=== PATIENT | male | born 1950 | race Caucasian/White ===

== ENCOUNTER 2017-03-23 07:20 | Emergency (ER) | payer BC ==
[2017-03-23 07:48] VITALS: BP 110/76
--- NOTE | 2017-03-23 08:40 | UC ---
Back Pain HPI - HPI Summary HPI Summary: Mr. Garcia is a pleasant 66 yo gentleman c/o R lower back pain x approx 3 days. Was working on his car, and twisted, felt pain in R low back. No b/b d/ o. No p/d/w. No fever / chills. - History of Current Complaint Chief Complaint: UCBackPain Stated Complaint: BACK PAIN Time Seen by Provider: 03/23/17 07:45 Hx Obtained From: Patient - Allergies/Home Medications Allergies/Adverse Reactions: Allergies Allergy/AdvReac Type Severity Reaction Status Date / Time No Known Allergies Allergy Verified 03/23/17 07:35 PMH/Surg Hx/FS Hx/Imm Hx Previously Healthy: No - copd, weight loss, mitral valve replacement - Surgical History Surgical History: Yes Surgery Procedure, Year, and Place: CABG x 2 vessels and mitral valve repair 1959, 2002, AND 2008 [facility] AND [place], [place]. MITRAL VALVE REPLACEMENT ( PLASTIC PER PT) 2016. 1996 & 2007 RT LOWER LEG FRACTURE ORIF. PACER - Family History Known Family History: Positive: Unknown - Social History Alcohol Use: None Alcohol Amount: NONE IN 20 YRS Substance Use Type: Marijuana Substance Use Comment - Amount & Last Used: a couple times a day Smoking Status (MU): Former Smoker Amount Used/How Often: 1PPD 20 YRS Have You Smoked in the Last Year: No When Did the Patient Quit Smoking/Using Tobacco: 1997 - Immunization History Most Recent Influenza Vaccination: 2013 Most Recent Tetanus Shot: within 10 yrs Most Recent Pneumonia Vaccination: 2012 or 2011 Review of Systems Constitutional: Negative, Other - recent ct chest 2/2 hx weight loss Skin: Negative Eyes: Negative ENT: Negative Respiratory: Negative - none new Cardiovascular: Negative - no change Gastrointestinal: Negative Genitourinary: Negative Motor: Negative Neurovascular: Negative Musculoskeletal: Other: - see hpi Neurological: Negative Psychological: Negative Is Patient Immunocompromised?: No All Other Systems Reviewed And Are Negative: Yes Physical Exam Triage Information Reviewed: Yes Appearance: Thin Vital Signs: Initial Vital Signs Temp 98.6 F 03/23/17 07:39 Pulse 69 03/23/17 07:39 Resp 20 03/23/17 07:39 BP 110/76 03/23/17 07:39 Pulse Ox 100 03/23/17 07:39 Vital Signs Reviewed: Yes Eye Exam: Normal - grossly normal ENT Exam: Normal - grossly normal Neck: Positive: Nontender Respiratory: Positive: Chest non-tender, Lungs clear, Normal breath sounds, No respiratory distress, No accessory muscle use Cardiovascular Exam: Normal Cardiovascular: Positive: RRR, Other: - + mv click Abdominal Exam: Other - thin Abdomen Description: Positive: Nontender, No Organomegaly Bowel Sounds: Positive: Present Musculoskeletal Exam: Other - back is tender R lat low back, diffuse, exending to R ischium. Buttocks nontender. DTR's P 2+ equal. Distal sens LT present. Neurological Exam: Normal - grossly normal, nonfocal Psychological Exam: Normal - conversing easily and appropriately Skin Exam: Normal - nondiaphoretic. a little pale. Back Pain Course/Dx - Course Course Of Treatment: Reviewed CT report from 03/17/17. Has upcoming appt with PCP in 2 days (Dr. Pratt) to review. Has upcomign appt with cash person in 3 days. Today s/sx c/w acute R low back strain. However, in light of CT report ( see meditech) incl ascending thor aneurysm, pulm nodules, recent weight loss, there is concern for possible confounding issue. Recommend further eval / tx in ED. D/w Mr. Garcia, he is amenable, wishes to drive himself. As such, analgesia in the ED (not prior to driving). D/w Dr. Larose, ED. - Differential Dx/Diagnosis Provider Diagnoses: Acute low back pain Discharge - Discharge Plan Condition: Stable Disposition: HOME Referrals: Mily Pratt MD [Primary Care Provider] - Additional Instructions: Go directly to the Emergency Department. Call [phone] en route if any problems.
== END 2017-03-23 08:40 | disposition home or self-care (01) ==
LOC: UCEAST 07:20
DX: M54.5 Low back pain (principal); Z87.891 Personal history of nicotine dependence; F12.90 Cannabis use, unspecified, uncomplicated; Z95.1 Presence of aortocoronary bypass graft; Z95.2 Presence of prosthetic heart valve
CPT/HCPCS: 99211; G0463

== ENCOUNTER 2017-03-23 09:02 | Emergency (ER) | payer BC ==
[2017-03-23] MEDS ORDERED: LORazepam TAB(*) 1 MG PO ONE (09:37)
[2017-03-23] MEDS ORDERED: Ibuprofen TAB* 600 MG PO ONE (09:37)
[2017-03-23] MEDS ORDERED: LORazepam INJ* 2 MG/ML 1 ML VIAL IV ONE (09:43)
[2017-03-23] MEDS ORDERED: Ketorolac INJ* 30 MG/ML 1 ML VIAL IV ONE (09:43)
[2017-03-23 10:06] LABS: Hematocrit 39 % (42-52); Hemoglobin 13.3 g/dl (14.0-18.0); Mean Corpuscular HGB Conc 34 g/dl (31-36); Mean Corpuscular Hemoglobin 31 pg (27-31); Mean Corpuscular Volume 91 fL (80-94); Mean Platelet Volume 8 um3 (7.4-10.4); Red Blood Count 4.25 10^6/ul (4.0-5.4); Red Cell Distribution Width 15 % (10.5-15); White Blood Count 6.8 10^3/ul (3.5-10.8)
[2017-03-23 10:10] LABS: Urine Bacteria Absent (Absent); Urine Bilirubin Negative (Negative); Urine Glucose Negative (Negative); Urine Nitrite Negative (Negative)
[2017-03-23 10:30] LABS: Troponin I 0.01 ng/mL (<0.04)
[2017-03-23 10:32] LABS: Albumin 4.5 g/dL (3.2-5.2); BUN/Creatinine Ratio 12.9 (8-20); C Reactive Protein 2.05 mg/L (< 5.00); Calcium 9.5 mg/dL (8.6-10.3); EGFR African American 105.2 (>60); EGFR Non-African American 81.8 (>60); Globulin 2.1 g/dL (2-4); Potassium 4.2 mmol/L (3.5-5.0); Total Bilirubin 0.9 mg/dL (0.2-1.0); Total Protein 6.6 g/dL (6.4-8.9)
[2017-03-23] MEDS ORDERED: Iohexol 350* (CONTRAST) 500 ML MDV IV ONE (10:36)
--- NOTE | 2017-03-23 11:18 | RAD ---
HISTORY: Back pain COMPARISONS: CT dated March 17, 2017 TECHNIQUE: Multiple contiguous axial CT scans were obtained of the chest, abdomen, and pelvis after the administration of intravenous contrast. Coronal and sagittal multiplanar reformations are submitted for review.. Oral contrast was not administered. FINDINGS: CHEST NECK AND THYROID: The lower neck and thyroid are unremarkable. CHEST WALL: There is no lower cervical, axillary, or supraclavicular lymphadenopathy by size criteria. A left-sided pacemaker is noted. HEART AND PERICARDIUM: A prosthetic mitral valve is noted. AORTA AND PULMONARY VASCULATURE: There is dilatation of the ascending thoracic aorta measuring up to 3.8 x 3.8 cm transversely, sparing the aorta and great. There is no intimal flap. MEDIASTINUM: There is no mediastinal lymphadenopathy by size criteria. LENORA: There is no hilar lymphadenopathy by size criteria. AIRWAY AND ESOPHAGUS: The airway is unremarkable, without endobronchial filling defect. The esophagus is grossly normal. LUNG PARENCHYMA: Again noted are multiple pulmonary parenchymal nodules similar to the previous examination measuring up to 0.6 cm in size. PLEURA: No pleural abnormalities are noted. BONES AND SOFT TISSUES: The patient is status post median sternotomy. Mild degenerative changes are noted. ABDOMEN/PELVIS: LIVER: The liver is normal in shape, size, contour, and attenuation. BILE DUCTS: There is no intrahepatic or extrahepatic biliary dilatation. GALLBLADDER: The gallbladder is normal, without pericholecystic inflammatory change. PANCREAS: The pancreas is normal, without mass or ductal dilatation. SPLEEN: Normal in size and appearance. UPPER GI TRACT: Evaluation of the gastrointestinal tract is limited by incomplete gastric distention. The upper GI tract is unremarkable. SMALL BOWEL & MESENTERY: The small bowel is normal in contour, course, and caliber. There is no obstruction or dilatation. COLON: There are multiple diverticula of the distal colon. There is no pericolonic inflammatory change. ADRENALS: Normal bilaterally. KIDNEYS: The kidneys are normal in shape, size, contour, and axis. There is no hydronephrosis or nephrolithiasis. BLADDER: The bladder is smooth in contour. PELVIC ORGANS: The prostate gland is normal. The seminal vesicles are symmetric. AORTA: There is calcific atherosclerotic disease of the abdominal aorta and its branches, without aneurysmal dilatation IVC: Unremarkable LYMPH NODES: There is no lymphadenopathy by size criteria. ABDOMINAL WALL: There is no evidence for abdominal wall hernia. BONES AND SOFT TISSUES: There is mild scoliotic curvature of the spine. Mild degenerative changes are noted. OTHER: None IMPRESSION: 1. 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 THERE IS NO INTIMAL FLAP TO SUGGEST DISSECTION. 2. ATHEROSCLEROSIS. 3. AGAIN NOTED ARE MULTIPLE PULMONARY PARENCHYMAL NODULES MEASURING UP TO 0.6 CM IN SIZE. THE RECOMMENDATIONS FOR FOLLOWUP AND MANAGEMENT OF INCIDENTALLY DETECTED MULTIPLE PULMONARY NODULES GREATER THAN OR EQUAL TO 6 MM BUT LESS THAN OR EQUAL TO 8 MM IN SIZE, IN A PATIENT WITHOUT A HISTORY OF MALIGNANCY, INCLUDE FOLLOWUP CT IN 3-6 MONTHS, THEN CONSIDER AGAIN AT 18-24 MONTHS FOR A LOW-RISK PATIENT OR FOLLOWUP CT IN 3-6 MONTHS, THEN AGAIN AT 18-24 MONTHS FOR A HIGH RISK PATIENT. 4. DIVERTICULOSIS NOTES: SIZE = AVERAGE LENGTH AND WIDTH; HIGH RISK IS DEFINED A HISTORY OF SMOKING OR OTHER KNOW RISK FACTORS FOR LUNG CANCER; LOW RISK IS DEFINED MINIMAL OR ABSENT HISTORY OF SMOKING OR OTHER KNOWN RISK FACTORS. Zachary, H, ELSY Shaikh, JACQUELYN Loaiza, et al (2017) "Guidelines for Management of Incidental Pulmonary Nodules Detected on CT Images: From the Fleischner Society 2017." Radiology; 284(1): 228-243. doi:10.1148/[id number]
[2017-03-23 12:00] VITALS: BP 104/69
--- NOTE | 2017-03-23 13:13 | ED ---
Saima Dyer Gabriel, scribed for Jose J Larose MD on 03/23/17 at 0926 . Back Pain - HPI Summary HPI Summary: This patient is a 66 year old M presenting to [facility] with a chief complaint of lower back pain since yesterday. Pt claims he was painting yesterday and believes he overstretched it while reaching. The patient rates the pain 10/10 in severity. Symptoms aggravated by movement. Patient denies tenderness to palpation in his back and ABD pain. Patient currently has an AAA. - History of Current Complaint Chief Complaint: EDBackInjuryPain Stated Complaint: BACK PAIN Time Seen by Provider: 03/23/17 09:16 Hx Obtained From: Patient Onset/Duration: Still Present Onset/Duration: Started Days Ago - Began yesterday Severity Currently: Severe Pain Intensity: 10 Pain Scale Used: 0-10 Numeric Aggravating Symptom(s): Movement Associated Signs And Symptoms: Positive: Negative - stomach pain, tenderness to palpation, and ABD pain - Allergies/Home Medications Allergies/Adverse Reactions: Allergies Allergy/AdvReac Type Severity Reaction Status Date / Time No Known Allergies Allergy Verified 03/23/17 07:35 PMH/Surg Hx/FS Hx/Imm Hx Previously Healthy: No Cardiovascular History: Reports: 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 MITRAL VALVE REPLACEMENT ( PLASTIC PER PT) 2016. 1996 & 2007 RT LOWER LEG FRACTURE ORIF. PACER Hx Anesthesia Reactions: No Infectious Disease History: No Infectious Disease History: Denies: Traveled Outside the US in Last 30 Days - Family History Known Family History: Negative: Hypertension, Diabetes - Social History Alcohol Use: None Alcohol Amount: NONE IN 20 YRS Substance Use Type: Reports: None Substance Use Comment - Amount & Last Used: WILL REFRAIN WEEK OF SURGERY Smoking Status (MU): Former Smoker Amount Used/How Often: 1PPD 20 YRS Have You Smoked in the Last Year: No Review of Systems Negative: Fever Negative: Abdominal Pain Positive: Other - Lower back pain All Other Systems Reviewed And Are Negative: Yes Physical Exam - Summary Physical Exam Summary: Appearance: Well-appearing Eyes: Normal, Conjunctiva clear ENT: Normal ENT inspection Dental: Normal Neck: Supple, non-tender, no lymphadenopathy Lungs: Lungs clear, normal breath sounds, no respiratory distress, no accessory muscle use Heart: RRR, no murmur, pulses normal. Abdomen: Nontender, soft. No masses, no rebound, no guarding, positive bowel sounds. Musculoskeletal: Patient has a positive straight leg raise at 40 degrees on his right side. Neurological: Normal Psychiatric: Normal Skin: Normal Triage Information Reviewed: Yes Vital Signs On Initial Exam: Initial Vitals Temp Pulse Resp BP Pulse Ox 98.6 F 72 18 124/81 99 03/23/17 09:04 03/23/17 09:04 03/23/17 09:04 03/23/17 09:04 03/23/17 09:04 Vital Signs Reviewed: Yes - Mary Anne Coma Scale Coma Scale Total: 15 Diagnostics - Vital Signs Vital Signs Temp Pulse Resp BP Pulse Ox 03/23/17 09:04 98.6 F 72 18 124/81 99 - Laboratory Lab Results: Lab Results 03/23/17 03/23/17 03/23/17 Range/Units 09:50 09:50 09:50 WBC 6.8 (3.5-10.8) 10^3/ul RBC 4.25 (4.0-5.4) 10^6/ul Hgb 13.3 L (14.0-18.0) g/dl Hct 39 L (42-52) % MCV 91 (80-94) fL MCH 31 (27-31) pg MCHC 34 (31-36) g/dl RDW 15 (10.5-15) % Plt Count 220 (150-450) 10^3/ul MPV 8 (7.4-10.4) um3 Neut % (Auto) 77.7 (38-83) % Lymph % (Auto) 12.2 L (25-47) % [place] % (Auto) 9.2 H (1-9) % Eos % (Auto) 0.5 (0-6) % Baso % (Auto) 0.4 (0-2) % Absolute Neuts (auto) 5.3 (1.5-7.7) 10^3/ul Absolute Lymphs (auto) 0.8 L (1.0-4.8) 10^3/ul Absolute Monos (auto) 0.6 (0-0.8) 10^3/ul Absolute Eos (auto) 0 (0-0.6) 10^3/ul Absolute Basos (auto) 0 (0-0.2) 10^3/ul Absolute Nucleated RBC 0 10^3/ul Nucleated RBC % 0.1 INR (Anticoag Therapy) (0.89-1.11) Sodium 134 (133-145) mmol/L Potassium 4.2 (3.5-5.0) mmol/L Chloride 100 L (101-111) mmol/L Carbon Dioxide 28 (22-32) mmol/L Anion Gap 6 (2-11) mmol/L BUN 12 (6-24) mg/dL Creatinine 0.93 (0.67-1.17) mg/dL Est GFR ( Amer) 105.2 (>60) Est GFR (Non-Af Amer) 81.8 (>60) BUN/Creatinine Ratio 12.9 (8-20) Glucose 96 (70-100) mg/dL Calcium 9.5 (8.6-10.3) mg/dL Total Bilirubin 0.90 (0.2-1.0) mg/dL AST 22 (13-39) U/L ALT 33 (7-52) U/L Alkaline Phosphatase 36 (34-104) U/L Troponin I 0.01 (<0.04) ng/mL C-Reactive Protein 2.05 (< 5.00) mg/L Total Protein 6.6 (6.4-8.9) g/dL Albumin 4.5 (3.2-5.2) g/dL Globulin 2.1 (2-4) g/dL Albumin/Globulin Ratio 2.1 (1-3) Urine Color Yellow Urine Appearance Clear Urine pH 7.0 (5-9) Ur Specific [place] 1.010 (1.010-1.030) Urine Protein Negative (Negative) Urine Ketones Negative (Negative) Urine Blood 2+ H (Negative) Urine Nitrate Negative (Negative) Urine Bilirubin Negative (Negative) Urine Urobilinogen Negative (Negative) Ur Leukocyte Esterase Negative (Negative) Urine WBC (Auto) Trace(0-5/hpf) (Absent) Urine RBC (Auto) 2+(6-10/hpf) H (Absent) Urine Bacteria Absent (Absent) Urine Glucose Negative (Negative) 03/23/17 Range/Units 09:50 WBC (3.5-10.8) 10^3/ul RBC (4.0-5.4) 10^6/ul Hgb (14.0-18.0) g/dl Hct (42-52) % MCV (80-94) fL MCH (27-31) pg MCHC (31-36) g/dl RDW (10.5-15) % Plt Count (150-450) 10^3/ul MPV (7.4-10.4) um3 Neut % (Auto) (38-83) % Lymph % (Auto) (25-47) % [place] % (Auto) (1-9) % Eos % (Auto) (0-6) % Baso % (Auto) (0-2) % Absolute Neuts (auto) (1.5-7.7) 10^3/ul Absolute Lymphs (auto) (1.0-4.8) 10^3/ul Absolute Monos (auto) (0-0.8) 10^3/ul Absolute Eos (auto) (0-0.6) 10^3/ul Absolute Basos (auto) (0-0.2) 10^3/ul Absolute Nucleated RBC 10^3/ul Nucleated RBC % INR (Anticoag Therapy) 1.96 H (0.89-1.11) Sodium (133-145) mmol/L Potassium (3.5-5.0) mmol/L Chloride (101-111) mmol/L Carbon Dioxide (22-32) mmol/L Anion Gap (2-11) mmol/L BUN (6-24) mg/dL Creatinine (0.67-1.17) mg/dL Est GFR ( Amer) (>60) Est GFR (Non-Af Amer) (>60) BUN/Creatinine Ratio (8-20) Glucose (70-100) mg/dL Calcium (8.6-10.3) mg/dL Total Bilirubin (0.2-1.0) mg/dL AST (13-39) U/L ALT (7-52) U/L Alkaline Phosphatase (34-104) U/L Troponin I (<0.04) ng/mL C-Reactive Protein (< 5.00) mg/L Total Protein (6.4-8.9) g/dL Albumin (3.2-5.2) g/dL Globulin (2-4) g/dL Albumin/Globulin Ratio (1-3) Urine Color Urine Appearance Urine pH (5-9) Ur Specific [place] (1.010-1.030) Urine Protein (Negative) Urine Ketones (Negative) Urine Blood (Negative) Urine Nitrate (Negative) Urine Bilirubin (Negative) Urine Urobilinogen (Negative) Ur Leukocyte Esterase (Negative) Urine WBC (Auto) (Absent) Urine RBC (Auto) (Absent) Urine Bacteria (Absent) Urine Glucose (Negative) Result Diagrams: 03/23/17 09:50 03/23/17 09:50 Lab Statement: Any lab studies that have been ordered have been reviewed, and results considered in the medical decision making process. Back Pain Course/Dx - Course Course Of Treatment: Mr. Garcia presented to [facility] C/O right low back pain that hurts to move. He has had no incontinence or weakness. His abd was soft and nontender. 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 CTA was negative and he improved with a muscle relaxer. I will treat him accordingly. - Diagnoses Provider Diagnoses: Low back strain Discharge - Discharge Plan Condition: Stable Disposition: HOME Prescriptions: LORazepam TAB(*) [Ativan TAB(*)] 1 mg PO Q6H PRN #20 tab MDD 4 PRN Reason: Pain traMADol TAB* [Ultram*] 25 mg PO Q6HR PRN #20 tab MDD 4 PRN Reason: Pain Patient Education Materials: Lorazepam (By mouth), Tramadol (By mouth), Acute Low Back Pain (ED) Referrals: Mily Pratt MD [Primary Care Provider] - 3 Days Additional Instructions: Follow up with PCP in 3-4 days. RETURN TO THE EMERGENCY DEPARTMENT FOR CHANGING OR WORSENING SYMPTOMS. The documentation as recorded by the Saima cristina Gabriel accurately reflects the service I personally performed and the decisions made by me, Jose J Larose MD.
== END 2017-03-23 11:57 | disposition home or self-care (01) ==
LOC: ED 09:02
DX: S39.012A Strain of muscle, fascia and tendon of lower back, initial encounter (principal); M54.5 Low back pain; Z87.891 Personal history of nicotine dependence; X50.9XXA Other and unspecified overexertion or strenuous movements or postures, initial encounter; Y93.9 Activity, unspecified; Y92.9 Unspecified place or not applicable
CPT/HCPCS: 36415; 71275; 74174; 80053; 81003; 81015; 84484; 85025; 85610; 86140; 96374; 96375; 99283; J1885; J2060; Q9967

== ENCOUNTER 2018-09-27 04:25 | Emergency (ER) | payer BC ==
--- NOTE | 2018-09-27 04:36 | ED ---
Palpitations / Dysrhythmia - HPI Summary HPI Summary: A 68 y/o M presents to ED c/o racing palpitations onset this AM upon waking, approx 90 minutes BLOCK CUBER. Denies CP, SOB, nausea, abd pain, LE pain. Denies recent trauma, illness. He sees Dr. Johns, cardio, last seen about a month ago. [employer]tronic pacemaker was placed approx 5-6 years ago. For the past month, he's been taking half the amount of Coumadin he was supposed to be taking. He was started on Lovenox four days ago. He returned from [place] in June. Multiple cardiac surgeries. - History of Current Complaint Chief Complaint: EDDysrhythmPalp Hx Obtained From: Patient Onset/Duration: Sudden Onset, Lasting Hours, Still Present Timing: Constant Character: Fast - Allergy/Home Medications Allergies/Adverse Reactions: Allergies Allergy/AdvReac Type Severity Reaction Status Date / Time No Known Allergies Allergy Verified 09/27/18 04:27 Home Medications: Home Medications Enoxaparin(*) [Lovenox(*)] 80 mg SUBCUT Q12HR 09/27/18 [History Confirmed ] Pravastatin Sodium 40 mg PO DAILY 09/27/18 [History Confirmed 09/27/18] PMH/Surg Hx/FS Hx/Imm Hx Previously Healthy: No Endocrine/Hematology History: Denies: Hx Diabetes Cardiovascular History: Reports: 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 MITRAL VALVE REPLACEMENT ( PLASTIC PER PT) 2016. 1996 & 2007 RT LOWER LEG FRACTURE ORIF. PACER Hx Anesthesia Reactions: No Infectious Disease History: No Infectious Disease History: Denies: Traveled Outside the US in Last 30 Days - Family History Known Family History: Negative: Hypertension, Diabetes - Social History Occupation: Employed Full-time Lives: Alone Alcohol Use: None Alcohol Amount: NONE IN 20 YRS Hx Substance Use: No Substance Use Type: Reports: None Substance Use Comment - Amount & Last Used: WILL REFRAIN WEEK OF SURGERY Hx Tobacco Use: Yes Smoking Status (MU): Former Smoker Amount Used/How Often: 1PPD 20 YRS Have You Smoked in the Last Year: No Review of Systems Positive: Palpitations - racing. Negative: Chest Pain Negative: Shortness Of Breath Negative: Abdominal Pain, Nausea Musculoskeletal: Other - neg: LE pain All Other Systems Reviewed And Are Negative: Yes Physical Exam - Summary Physical Exam Summary: Appearance: well appearing, no pain distress Skin: warm, dry, reflects adequate perfusion Head/face: normal Eyes: EOMI, TONE ENT: mucous membranes moist Neck: supple, non-tender Respiratory: CTA, breath sounds present Cardiovascular: pacemaker in L upper chest, tachy, pulses symmetrical Abdomen: non-tender, soft Bowel Sounds: present Musculoskeletal: normal, strength/ROM intact Neuro: normal, sensory motor intact, A&Ox3 Triage Information Reviewed: Yes Vital Signs On Initial Exam: Initial Vitals Temp Pulse Resp BP Pulse Ox 97.8 F 125 18 129/101 98 09/27/18 04:27 09/27/18 04:27 09/27/18 04:27 09/27/18 04:27 09/27/18 04:27 Vital Signs Reviewed: Yes Diagnostics - Vital Signs Vital Signs Temp Pulse Resp BP Pulse Ox 09/27/18 04:27 97.8 F 125 18 129/101 98 - Laboratory Result Diagrams: 09/27/18 04:49 09/27/18 04:47 Lab Statement: Any lab studies that have been ordered have been reviewed, and results considered in the medical decision making process. - EKG 0430 Summary of EKG Findings: Ventricular-paced at 123 bpm, Left axis, non-specific ST. Re-Evaluation - Re-Evaluation 1 Re-Evaluation Time: 05:01 Change: Improved Comment: Patient is feeling better with slower HR due to donut magnet. Interrogated pacemaker. 2 Re-Evaluation Time: 05:29 Change: Improved Comment: Patient still feeling well with donut on him. Course/Dx - Course Course Of Treatment: Nurses' notes reviewed. 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 He may be over sensing.Placed donut magnet over pacemaker and his rate dropped to 85 bpm and the patient's symptoms resolved. Pacemaker interrogation was done on the [employer] device. There was no indicated arrhythmia or malfunction reported. Spoke with Dr. Coronado who will have the [employer] customer contact representative, evaluate and reprogram the device after 7: 00. Patient was signed out to oncoming ER physician pending the pacemaker evaluation and reprogramming. - Diagnoses Differential Diagnosis/HQI/PQRI: Positive: Hypokalemia, Medication Induced, Other - Pacemaker device failure, pacemaker tachycardia Provider Diagnoses: Pacemaker-mediated tachycardia - Physician Notifications Discussed Care Of Patient With: Grant Coronado - cardio Time Discussed With Above Provider: 05:37 Instructed by Provider To: Other - Will contact [employer] and have them come reprogram it in the AM. - Critical Care Time Critical Care Time: 30-74 min - 30 mins CCT. CCT is EXCLUSIVE of separately billable procedures. Discharge - Sign-Out/Discharge Documenting (check all that apply): Sign-Out Patient Signing out patient TO: Magdiel Whiting - pending [employer] rep reprograming pacemaker Patient Received Moderate/Deep Sedation with Procedure: No - Discharge Plan Condition: Stable Referrals: Mily Pratt MD [Primary Care Provider] - - Billing Disposition and Condition Condition: STABLE - Attestation Statements Document Initiated by Scribe: Yes Documenting Scribe: Mary Killian Provider For Whom Scribe is Documenting (Include Credential): Dr. Georgi Mortensen MD Scribe Attestation: Mary Dyer scribed for Dr. Georgi Mortensen MD on 09/27/18 at 0623. Scribe Documentation Reviewed: Yes Provider Attestation: The documentation as recorded by the Mary cristina accurately reflects the service I personally performed and the decisions made by , Dr. Georgi Mortensen MD Status of Scribe Document: Viewed
[2018-09-27] MEDS ORDERED: Diltiazem IV push/loading dose 5 MG/ML 5 ML vial (25 mg) IV SLOW PU ONE (04:43)
[2018-09-27] MEDS ORDERED: NS 0.9% 1000 ML** 1,000 ML IV ONE (04:43)
[2018-09-27 04:55] LABS: ABS Eosinophils 0.1 10^3/ul (0-0.6); ABS Lymphocytes 1.4 10^3/ul (1.0-4.8); ABS Monocytes 0.6 10^3/ul (0-0.8); ABS Neutrophils 4.1 10^3/ul (1.5-7.7); Eosinophil % 1.9 %; Hematocrit 41 % (42-52); Mean Corpuscular HGB Conc 34 g/dL (31-36); Mean Corpuscular Hemoglobin 31 pg (27-31); Mean Corpuscular Volume 91 fL (80-94); Mean Platelet Volume 8.3 fL (7.4-10.4); Nucleated Red Blood Cells % 0.1; Platelet Count 153 10^3/uL (150-450); Red Blood Count 4.55 10^6 /uL (4.18-5.48); Red Cell Distribution Width 14 % (10.5-15); White Blood Count 6.2 10^3/uL (3.5-10.8)
[2018-09-27 05:02] LABS: INR 1.9 (0.82-1.09)
[2018-09-27 05:11] LABS: Albumin 4.8 g/dL (3.2-5.2); BUN/Creatinine Ratio 15.3 (8-20); Calcium 9.5 mg/dL (8.6-10.3); EGFR African American 92.6 (>60); EGFR Non-African American 76.5 (>60); Globulin 2.4 g/dL (2-4); Potassium 3.9 mmol/L (3.5-5.0); Total Bilirubin 0.5 mg/dL (0.2-1.0); Total Protein 7.2 g/dL (6.4-8.9)
[2018-09-27 05:13] LABS: Troponin I 0.02 ng/mL (<0.04)
--- NOTE | 2018-09-27 06:56 | ED ---
Progress - Progress Note Progress Note: Receiving sign out from Dr. Mortensen at shift change 09/27/[address] Whiting peding a [employer] repair of pacemaker tachycardia. Re-Evaluation - Re-Evaluation 1 Re-Evaluation Time: 08:06 Change: Improved Comment: Patient is feeling better. Pacemaker was assesed. Dr. Coronado will be contacted to discuss procedure from here. 2 Re-Evaluation Time: 08:26 Change: Improved Comment: Dr. Coronado reviewed the patient, recommended discharge and f/u with Dr. Burt. Course/Dx - Course Course Of Treatment: This patient was signed out to Dr. Mortensen. He is awaiting for Dr. Coronado from cardiology and assessed the patient as well as a [employer] bilingual inside sales representative. Dr. Coronado reports that the patient has and atrial tachycardia. Therefore he disconnected the need for the atrial rhythm and now he has a ventricular rhythm of 70 bpm. Therefore he recommends for the patient to be discharged home and follow up with and Dr. Loco and discontinue taking Multaq. I discussed all the findings and test results with the patient. Patient was instructed to return to the emergency room immediately if any of the symptoms return worsens. Plan of care was discussed with the patient and understands and agrees. All questions were answered at patient satisfaction. There were no further complaints or concerns. Lung exam before discharge: CTA B/ L. Good air exchange. No wheezing or crackles heard. CVS: S1 and S2 present. No murmurs appreciated. Patient is alert and oriented x 3. Patient is hemodynamically stable. Patient will be discharged home with follow up PCP in the next 2-3 days - Diagnoses Provider Diagnoses: Atrial tachycardia - Provider Notifications Discussed Care Of Patient With: Grant Coronado Time Discussed With Above Provider: 08:32 Instructed by Provider To: Other - Discharge and F/U with Dr. Burt. Dr. Coronado, blueprint trimmer recommended discontinuing multaq. Discharge - Sign-Out/Discharge Documenting (check all that apply): Patient Departure - discharge Patient Received Moderate/Deep Sedation with Procedure: No - Discharge Plan Condition: Stable Disposition: HOME Patient Education Materials: Atrial Tachycardia (ED) Referrals: Sekou Burt MD [Medical Doctor] - Additional Instructions: FOLLOW UP WITH DR. BURT TO DISCUSS FURTHER TREATMENT OPTIONS WITHIN 3 DAYS. RETURN TO THE EMERGENCY ROOM FOR ANY WORSENING OR NEW SYMPTOMS. - Attestation Statements Document Initiated by Scribe: Yes Documenting Scribe: Trey Parish Provider For Whom Scribe is Documenting (Include Credential): Magdiel Whiting MD Scribe Attestation: ITrey and José Parish, scribed for Magdiel Whiting MD on 09/27/18 at 0949. Status of Scribe Document: Ready
[2018-09-27 08:39] LABS: TSH (Thyroid Stimulating Horm) 3.31 mcIU/mL (0.34-5.60)
[2018-09-27 09:11] VITALS: BP 120/83
--- NOTE | 2018-09-27 10:53 | CONS ---
CC: Dr. Johns; [facility]. CARDIOLOGY CONSULTATION: DATE OF CONSULT: 09/27/18 INDICATION FOR CONSULTATION: Atrial tachycardia. HISTORY OF PRESENT ILLNESS: The patient is a 68-year-old gentleman with a history of coronary artery disease, history of coronary bypass surgery, history of pacemaker implantation for heart block, hist ory of mitral valve replacement with mechanical valve, who came to the hospital because of palpitatio ns. The patient states that for the past week or so he has been feeling palpitations and then became incessant last night. He came to the emergency room. On arrival to the emergency room, he was in a wide complex rhythm at 125 beats per minute. The patient was awake and alert and oriented. His int errogation of his device demonstrated what was thought to be either a pacemaker mediated tachycardia or an atrial tachycardia, it is unable to distinguish based on that interpretation. When I came in t o see the patient, he had a magnet placed over his pacemaker and he was atrioventricularly paced at 8 5 beats per minute. Interrogation of the device demonstrated that he had an atrial tachycardia at 13 0 beats per minute that was tracking in the ventricle at 125 beats per minute. A magnet placed over the device causes inhibition of tracking and he was ventricularly paced at 85 beats per minute. The patient denied any chest pain. He denied any increase in shortness of breath. The patient has been having issues with his anticoagulation and his INR have been low. He was on Domingo enox for a while until his INR became greater than 2.0. The patient has had no other hospitalization s. No other changes in his medications. PAST MEDICAL HISTORY: Includes coronary artery disease, mitral valve disease, microscopic hematuria, leg fracture. PAST SURGICAL HISTORY: Valve surgery and bypass in 1959, valve replacement with a mechanical valve i n 2015, pacemaker implantation. OUTPATIENT MEDICATIONS: 1. Coumadin as directed. 2. Lisinopril 5 mg a day. 3. Metoprolol tartrate 25 mg b.i.d. 4. Multaq 400 mg b.i.d. 5. Pravastatin 10 mg a day. ALLERGIES: No known drug allergies. FAMILY HISTORY: Father of lung cancer. Mother of dementia at 84. SOCIAL HISTORY: He is . He is a paul. He is a previous smoker. He quit 10 years ago. No alcohol intake. He does exercise regularly with hiking and biking. REVIEW OF SYSTEMS: Negative for fevers and chills. Negative changes in bowel or bladder with negati ve for changes in weight. Other 12 point review is unremarkable. PHYSICAL EXAM: Height is 5 feet 8 inches, weight is 150 pounds, temperature 98.6, heart rate is now 70, blood pressure 120/83, respiratory rate is 19, oxygen saturation 95% on room air. Sclerae anicte nando. Oropharynx is pink without erythema. Carotids are 2+ without bruits. JVD is normal. Thyroid is normal. Cardiac Exam: Mechanical S1, S2 with a 1/6 systolic ejection murmur, no diastolic murmur. PMI is normal. Lungs are clear to auscultation bilateral. No dullness to percussion. Abdomen is soft, nontender, nondistended with normoactive bowel sounds. Extremities show no edema. He has 2+ p ulses throughout. The patient is awake, alert, and oriented. He moves all 4 extremities equally. LABORATORY STUDIES: CBC within normal limits. Chemistries within normal limits. BUN and creatinine are normal. TSH is normal at 3.1. INR is 1.9. IMPRESSION: This is a 68-year-old gentleman with a history of mitral valve disease, coronary bypass surgery, now with mechanical mitral valve who came to the hospital because of palpitations. He was f ound to be in wide complex rhythm at 125 beats per minute. It turns out this was atrial tachycardia at 130 beats per minute at which his pacemaker was tracking at 125 beats per minute. The patient's p acemaker was reprogrammed to ventricular pacing only at 70 beats per minute, his atrial lead was turn ed off. For now, my recommendation is the patient stop his Multaq as it is not preventing any arrhythmias. T he patient will be seen in followup by Dr. Johns. My recommendation is that the patient can be s tarted on amiodarone for suppression of his atrial arrhythmias or consideration of an electrophysiolo gy consultation for possible ablation. The patient's other medications will remain the same. His laboratory studies were unremarkable. [id number]/[facility] #: [id number]
== END 2018-09-27 09:11 | disposition home or self-care (01) ==
LOC: ED 04:25
DX: R00.0 Tachycardia, unspecified (principal); Z95.0 Presence of cardiac pacemaker; Q24.9 Congenital malformation of heart, unspecified; I73.9 Peripheral vascular disease, unspecified; Z95.2 Presence of prosthetic heart valve
CPT/HCPCS: 36415; 80053; 83605; 83735; 83880; 84443; 84484; 85025; 85610; 93005; 96361; 96374; 99283

== ENCOUNTER 2019-02-28 18:53 | Emergency (ER) | payer BC ==
--- NOTE | 2019-02-28 20:03 | ED ---
Palpitations / Dysrhythmia - HPI Summary HPI Summary: Patient is a 68 y/o M with a pacemaker, no defibrillator and Hx of ablation done within the past few months at [place] who presents to [facility] with complaints of fast palpitations. He states that he began to have similar Sx after he had his pacemaker placed. Patient was evaluated [place] [facility]. Coronado had recommended that he had ablation done in [place]. A week after, the patient had another episode of the same Sx. He came in again to [facility] and reports that he had a cardioversion. The following morning, he had the same issue and states that this time he had his pacemaker re-adjusted. Patient states that he recently had his monthly pacemaker appointment and had his pacemaker readjusted again. He states that he is unsure if he goes into afib when he has his palpitations. Patient notes that he had a cardioechogram earlier today in office but states that he was not told about the results of this study. Palpitations onset after leaving the office. He denies CP, fever, cough, SOB, dizziness, light-headedness N/V/D, diaphoresis. Patient is on Coumadin, Pravastatin, Metoprolol and Lisinopril. On triage, pain is denied, nothing is noted to aggravate/alleviate Sx. Home mediations and allergies are reviewed. 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 MITRAL VALVE REPLACEMENT ( PLASTIC PER PT) 2016. 1996 & 2007 RT LOWER LEG FRACTURE ORIF. PACER Hx Anesthesia Reactions: No Infectious Disease History: No Infectious Disease History: Denies: Traveled Outside the [place] in Last 30 Days - Family History Known Family History: Negative: Hypertension, Diabetes - Social History Alcohol Use: None Alcohol Amount: NONE IN 20 YRS Hx Substance Use: No Substance Use Type: Reports: None Substance Use Comment - Amount & Last Used: WILL REFRAIN WEEK OF SURGERY Hx Tobacco Use: Yes Smoking Status (MU): Former Smoker Amount Used/How Often: 1PPD 20 YRS Have You Smoked in the Last Year: No Review of Systems Negative: Fever, Skin Diaphoresis Positive: Palpitations. Negative: Chest Pain Negative: Shortness Of Breath, Cough Negative: Vomiting, Diarrhea, Nausea Neurological: Other - negative - dizziness, light-headedness All Other Systems Reviewed And Are Negative: Yes Physical Exam - Summary Physical Exam Summary: General: Well-developed, thin-appearing male. No acute distress. HEENT: Normocephalic, Atraumatic. Eyes: Conjuctiva normal, PERRL. Ears: TMs within normal limits. Nares: (-) discharge, (-) erythema. Oropharynx: Clear, mucous membranes moist, (-) exudates. Neck: Soft, FROM, (-) lymphadenopathy, (-) thyromegaly, (-) JVD. Cardiovascular: Sinus tachycardia, (-) murmur. Lungs: Clear to auscultation bilaterally (-) wheezes, (-) rales, (-) rhonchi. Abdomen: Soft, non-tender, non-distended, (-) organomegaly, normal bowel sounds. Back: (-) CVA tenderness Extremities: No edema. Skin: Warm, dry, (-) rash. Neuro: Alert and oriented x3, no focal deficits. Psychiatric: Moderately anxious appearing Triage Information Reviewed: Yes Vital Signs On Initial Exam: Initial Vitals Temp Pulse Resp BP Pulse Ox 98.1 F 122 20 151/107 97 02/28/19 18:59 02/28/19 18:59 02/28/19 18:59 02/28/19 18:59 02/28/19 18:59 Vital Signs Reviewed: Yes Procedures - Sedation Patient Received Moderate/Deep Sedation with Procedure: No Diagnostics - Vital Signs Vital Signs Temp Pulse Resp BP Pulse Ox 02/28/19 19:42 23 02/28/19 18:59 98.1 F 122 20 151/107 97 - Laboratory Result Diagrams: 02/28/19 20:10 02/28/19 20:10 Lab Statement: Any lab studies that have been ordered have been reviewed, and results considered in the medical decision making process. - Radiology CXR Radiology Interpretation Completed By: ED Physician Summary of Radiographic Findings: CXR showed no pneumonia, no pleural effusions , no acute process, pending official report. - EKG 02/28/19 Cardiac Rate: Other Rate - ventricular-paced with rate of 122 BPM Summary of EKG Findings: EKG showed ventricular-paced rhythm with rate of 122 BPM, no STEMI. This EKG was reviewed and interpreted by ED physician. Re-Evaluation - Re-Evaluation First Eval Re-Evaluation Time: 21:00 Comment: Consult and workup were discussed with the patient. Patient is discharged to home and will follow up with Dr. Coronado. Course/Dx - Course Course Of Treatment: 68-year-old male with tachycardia. Palpitations. Patient with extensive history of this despite pacemaker. He states he has had to have his pacemaker turned off and adjust 4-5 times now. recently had an ablation as well. He requests magnet to turn his pacemaker. Workup essentially negative. Discussed with cardiology on-call turning the pacemaker off was not recommended as he is ventricularly paced 99% of the time. It appears he has atrial tachycardia. he was discharged ot home, advised to follow up with cardiology in the am. return sooner for any worsening symptoms. - Diagnoses Provider Diagnoses: Palpitations, Tachycardia - Physician Notifications Discussed Care Of Patient With: Jb Mahajan Time Discussed With Above Provider: 20:56 Instructed by Provider To: Other - Patient's case was discussed with Dr. Mahajan, he states that the patient can be discharged and managed on an outpatient basis. Discharge ED - Sign-Out/Discharge Documenting (check all that apply): Patient Departure - discharge - Discharge Plan Condition: Stable Disposition: HOME Patient Education Materials: Heart Palpitations (ED), Tachycardia (ED) Referrals: Mily Pratt MD [Primary Care Provider] - Grant Coronado MD [Medical Doctor] - Additional Instructions: FOLLOW UP WITH DR. CORONADO TOMORROW IN THE MORNING. PLEASE RETURN TO ED FOR ANY NEW OR WORSENING SYMPTOMS. - Billing Disposition and Condition Condition: STABLE Disposition: Home - Attestation Statements Document Initiated by Karol: Yes Documenting Scribe: NELA RENE Provider For Whom Karol is Documenting (Include Credential): KEL CISNEROS MD Scribe Attestation: NELA Dyer, scribed for KEL CISNEROS MD on 03/01/19 at 0141. Scribe Documentation Reviewed: Yes Provider Attestation: The documentation as recorded by the NELA cristina accurately reflects the service I personally performed and the decisions made by me, KEL CISNEROS MD Status of Scribe Document: Viewed
[2019-02-28 20:16] LABS: ABS Eosinophils 0.1 10^3/ul (0-0.6); ABS Lymphocytes 0.9 10^3/ul (1.0-4.8); ABS Monocytes 0.5 10^3/ul (0-0.8); ABS Neutrophils 3.7 10^3/ul (1.5-7.7); Eosinophil % 1.9 %; Hematocrit 38 % (42-52); Hemoglobin 12.8 g/dL (14.0-18.0); Lymphocyte % 17.5 %; Mean Corpuscular HGB Conc 34 g/dL (31-36); Mean Corpuscular Hemoglobin 31 pg (27-31); Mean Corpuscular Volume 90 fL (80-94); Mean Platelet Volume 7.7 fL (7.4-10.4); Nucleated Red Blood Cells % 0.1; Platelet Count 179 10^3/uL (150-450); Red Blood Count 4.16 10^6 /uL (4.18-5.48); Red Cell Distribution Width 14 % (10-15); White Blood Count 5.2 10^3/uL (3.5-10.8)
[2019-02-28 20:35] LABS: Albumin 4.5 g/dL (3.2-5.2); Albumin/Globulin Ratio 1.8 (1-3); BUN/Creatinine Ratio 24.7 (8-20); Calcium 9.5 mg/dL (8.6-10.3); EGFR African American 115.4 (>60); EGFR Non-African American 95.3 (>60); Globulin 2.5 g/dL (2-4); INR 2.55 (0.82-1.09); Potassium 4.1 mmol/L (3.5-5.0); Total Bilirubin 0.5 mg/dL (0.2-1.0); Troponin I 0.03 ng/mL (<0.04)
[2019-02-28 20:49] LABS: TSH (Thyroid Stimulating Horm) 2.96 mcIU/mL (0.34-5.60)
[2019-02-28 21:09] VITALS: BP 118/89
[2019-03-01] MEDS ORDERED: Lisinopril TAB* 5 MG PO SCH (09:00)
[2019-03-01] MEDS ORDERED: Atorvastatin* 10 MG TAB PO SCH (09:00)
[2019-03-01] MEDS ORDERED: Metoprolol Tartrate TAB* 25 MG PO SCH (09:00)
[2019-03-01] MEDS ORDERED: Warfarin TAB(*) 2.5 MG PO SCH (09:00)
== END 2019-02-28 21:05 | disposition home or self-care (01) ==
LOC: ED 18:53
DX: R00.2 Palpitations (principal); R00.0 Tachycardia, unspecified; E24.9 Cushing's syndrome, unspecified; I10 Essential (primary) hypertension; Z95.2 Presence of prosthetic heart valve; Z95.1 Presence of aortocoronary bypass graft; Z95.810 Presence of automatic (implantable) cardiac defibrillator; Z87.891 Personal history of nicotine dependence; Z79.01 Long term (current) use of anticoagulants; Z79.899 Other long term (current) drug therapy
CPT/HCPCS: 36415; 71045; 80053; 83605; 83880; 84443; 84484; 85025; 85610; 93005; 99282

== ENCOUNTER 2022-01-31 00:36 | Inpatient (IN) ==
[2022-01-31 01:30] LABS: ABS Basophils 0.1 10^3/ul (0-0.2); ABS Eosinophils 0.1 10^3/ul (0-0.6); ABS Lymphocytes 2.1 10^3/ul (1.0-4.8); Eosinophil % 1.1 %; Hematocrit 43 % (42-52); Hemoglobin 14.2 g/dL (14.0-18.0); Lymphocyte % 16.8 %; Mean Corpuscular HGB Conc 33 g/dL (31-36); Mean Corpuscular Hemoglobin 30 pg (27-31); Mean Corpuscular Volume 93 fL (80-94); Mean Platelet Volume 8.4 fL (7.4-10.4); Nucleated Red Blood Cells % 0.1; Platelet Count 189 10^3/uL (150-450); Red Blood Count 4.66 10^6 /uL (4.18-5.48); Red Cell Distribution Width 15 % (10-15); White Blood Count 12.2 10^3/uL (3.5-10.8)
[2022-01-31 01:37] LABS: INR 3.58 (0.89-1.11)
[2022-01-31] MEDS ORDERED: Morphine 4 MG/ML VIAL (1 ml) IV PRN (01:44)
[2022-01-31] MEDS ORDERED: Morphine 4 MG/ML VIAL (1 ml) IV ONE ×2 (01:44→03:53)
[2022-01-31 01:54] LABS: High Sens Troponin Baseline 11 pg/mL (<20)
[2022-01-31 02:01] LABS: CO2 Carbon Dioxide 23 mmol/L (22-32); Calcium 9.2 mg/dL (8.6-10.3); Chloride 104 mmol/L (101-111); Sodium 134 mmol/L (135-145)
[2022-01-31 02:06] LABS: Anion Gap 7 mmol/L (2-11)
[2022-01-31 02:07] LABS: ALT 38 U/L (7-52); Albumin/Globulin Ratio 2.1 (1-3); Alkaline Phosphatase 58 U/L (35-149); Blood Urea Nitrogen 23 mg/dL (6-24); Globulin 2.4 g/dL (2-4); Glucose 120 mg/dL (70-100); Total Protein 7.4 g/dL (6.4-8.9); eGFR CKD-EPI 93.7 (>60)
[2022-01-31 02:25] LABS: Lipase 6388 U/L (11.0-82.0)
[2022-01-31 02:59] LABS: Potassium Redraw 3.7 mmol/L (3.5-5.0)
[2022-01-31] MEDS ORDERED: Droperidol 5 MG/2 ML 2 ML VIAL IV ONE (03:20)
[2022-01-31] MEDS ORDERED: NS 0.9% 1000 ml BAG 1,000 ML IV ONE (03:30)
[2022-01-31] MEDS ORDERED: Ondansetron 4 mg VIAL 2 MG/ML 2 ml VIAL IV PRN (04:10)
[2022-01-31] MEDS ORDERED: NS 0.9% 1000 ml BAG 1,000 ML IV SCH (04:15)
[2022-01-31 04:48] LABS: Triglycerides 93 mg/dL
[2022-01-31] MEDS: NS 0.9% 1000 ml BAG 1,000 ML IV SCH ×2 (05:40→12:50)
[2022-01-31 05:59] LABS: ABS Lymphocytes 0.6 10^3/ul (1.0-4.8); ABS Monocytes 0.8 10^3/ul (0-0.8); ABS Neutrophils 15.4 10^3/ul (1.5-7.7); Hematocrit 41 % (42-52); Hemoglobin 13.4 g/dL (14.0-18.0); Lymphocyte % 3.7 %; Mean Corpuscular HGB Conc 33 g/dL (31-36); Mean Corpuscular Hemoglobin 30 pg (27-31); Mean Corpuscular Volume 92 fL (80-94); Mean Platelet Volume 8.3 fL (7.4-10.4); Nucleated Red Blood Cells % 0.1; Platelet Count 181 10^3/uL (150-450); Red Blood Count 4.45 10^6 /uL (4.18-5.48); Red Cell Distribution Width 15 % (10-15); White Blood Count 16.9 10^3/uL (3.5-10.8)
[2022-01-31] MEDS ORDERED: Warfarin per PHARMACY **NOTE FOLLOW UP SCH (06:00)
[2022-01-31] MEDS ORDERED: Enoxaparin 40 MG/0.4 ML SYR SUBCUT SCH (06:00)
[2022-01-31 06:01] LABS: Urine Appearance Cloudy; Urine Bilirubin Negative (Negative); Urine Blood 2+ (Negative); Urine Color Yellow; Urine Glucose Negative (Negative); Urine Ketones Negative (Negative); Urine Nitrite Negative (Negative); Urine Protein 1+(30 mg/dL) (Negative); Urine Specific Gravity 1.016 (1.002-1.030); Urine Urobilinogen Negative (Negative)
[2022-01-31 06:14] LABS: Urine Bacteria 1+ (Absent); Urine Red Blood Cell 3+(>10/hpf) (Absent); Urine Squamous Epithelial Cell Present (Absent); Urine White Blood Cell 1+(6-10/hpf) (Absent)
[2022-01-31 06:22] LABS: Calcium 8.5 mg/dL (8.6-10.3); Potassium 3.3 mmol/L (3.5-5.0); eGFR CKD-EPI 94.7 (>60)
[2022-01-31 06:54] LABS: INR 4.19 (0.89-1.11)
[2022-01-31] MEDS ORDERED: Pantoprazole VIAL 40 MG VIAL IV SCH (08:00)
[2022-01-31] MEDS ORDERED: Prochlorperazine 5 mg/ml 2 ml VIAL (10 mg) IV PRN (08:51)
[2022-01-31] MEDS: HYDROmorphone 1 MG/1 ML SYRINGE IV SLOW PU PRN ×2 (10:59→12:57)
[2022-01-31] MEDS ORDERED: Naloxone 0.4 mg VIAL 0.4 mg/ml 1 ml VIAL ONE (15:05)
[2022-01-31] MEDS ORDERED: Norepinephrine 16MCG/ML BAGD5W 4,000 MCG/250 ML BAG IV ONE (15:34)
[2022-01-31] MEDS ORDERED: Rocuronium 50 mg VIAL 10 mg/ml 5 ml VIAL (50 mg) ONE (15:57)
[2022-01-31] MEDS ORDERED: Succinylcholine 200 mg VIAL 20 mg/ml 10 ml VIAL (200 mg) ONE (15:57)
[2022-01-31] MEDS ORDERED: Sodium Bicarbonate 8.4% SYR 50 ml SYRINGE ONE ×4 (15:59→16:14)
[2022-01-31] MEDS ORDERED: Etomidate 40 mg/20 ml (2 MG/ML) 20 ml VIAL (40 mg) ONE (16:00)
[2022-01-31] MEDS ORDERED: Amiodarone IV 150 mg/3 ml VIAL ONE ×3 (16:05→16:40)
[2022-01-31] MEDS ORDERED: EPINEPHrine SYR 0.1MG/ML 10 ml SYRINGE ONE ×3 (16:05→16:40)
[2022-01-31 16:07] LABS: ABS Lymphocytes 1.4 10^3/ul (1.0-4.8); ABS Monocytes 0.4 10^3/ul (0-0.8); ABS Neutrophils 10.5 10^3/ul (1.5-7.7); Eosinophil % 0.1 %; Hematocrit 24 % (42-52); Hemoglobin 7.5 g/dL (14.0-18.0); Mean Corpuscular HGB Conc 32 g/dL (31-36); Mean Corpuscular Hemoglobin 30 pg (27-31); Mean Corpuscular Volume 95 fL (80-94); Mean Platelet Volume 8.6 fL (7.4-10.4); Platelet Count 161 10^3/uL (150-450); Red Blood Count 2.49 10^6 /uL (4.18-5.48); Red Cell Distribution Width 15 % (10-15); White Blood Count 12.2 10^3/uL (3.5-10.8)
[2022-01-31] MEDS ORDERED: PHENYLEPHRINE DRIP IVPREMIX 50 MG/250 ML BAG IV ONE (16:07)
[2022-01-31 16:42] LABS: Albumin 2.6 g/dL (3.2-5.2); Albumin/Globulin Ratio 2.6 (1-3); Calcium 6.8 mg/dL (8.6-10.3); Magnesium 1.9 mg/dL (1.9-2.7); Total Bilirubin 0.7 mg/dL (0.2-1.0); Total Protein 3.6 g/dL (6.4-8.9); eGFR CKD-EPI 50.5 (>60)
[2022-01-31] MEDS ORDERED: Warfarin - No Order Today **NOTE FOLLOW UP ONE (17:00)
[2022-01-31 17:30] VITALS: BP 64/23
[2022-02-01] MEDS ORDERED: Warfarin DAILY REMINDER **NOTE FOLLOW UP SCH (17:00)
== END 2022-01-31 16:46 | disposition expired | DRG 439 ==
LOC: ED 00:36 → EDHOLD 04:14 → ICU 12:00 → MED 12:40 → ICU 15:51
PROVIDERS: ADMIT Student in an Organized Health Care Education/Training Program; ATTEND Student in an Organized Health Care Education/Training Program